=== PATIENT | male | born 1965 | race African-American/Black ===

== ENCOUNTER 2020-06-25 18:14 | Emergency (ER) | payer OTHER ==
[~2020-06-25] VITALS: Ht 172.7 cm; Wt 72.7 kg
[2020-06-25] MEDS ORDERED: HYDROCODONE/ACETAMINOPHEN 5-325 MG TABLET PO ONE (18:45)
[2020-06-25 19:51] VITALS: BP 134/75
== END 2020-06-25 19:58 | disposition home or self-care (01) ==
LOC: EMS 18:14
DX: G89.29 Other chronic pain (principal); G44.89 Other headache syndrome
CPT/HCPCS: 70450; 99284